=== PATIENT | male | born 1950 | race Caucasian/White ===

== ENCOUNTER 2017-10-25 06:57 | Inpatient (IN) | payer MEDICARE ==
[~2017-10-25] VITALS: Ht 182.9 cm; Wt 115.0 kg
[~2017-10-25 06:57] MED LIST: ASPI325 PO; ASPI81EC; Alph-E-Mixed400 UNIT; CALCIUM 1,0001 EACH PO; DIGO.25 PO; DILT120 PO; DRON400T; Daily Multiple1 EACH PO; Desyrel50 MG PO; FAMO20; FISH OIL 1,0001 EAC1 PO; FISH1000 PO; FLAX PO; FLEC100 PO; FLEC50; FLEC50 PO; HYDACE5 PO; HYOS.125 SL; L-Lysine500 M1 PO; LEVO-T125 MCG PO; LEVSOD150 PO; LEVSOD175 PO; LEVSOD75 PO; LORA10ER PO; LORATADINE10 MG PO; METOPROLOL PO; NAPR550 PO; PANT40 PO; PRAV20 PO; PROBIOTIC1 EAC3 PO; ROSU10TA; ROSU5 PO; SIMV40 PO; SV FLAXSEED OI1 EACH PO; TERB250; TESTOSTERONE; TESTOSTERONE IM; TESTTP; THYROID MED; Toprol Xl50 MG PO; UBID10 PO; VITAMIN C 500500 MG PO; VITAMIN D22000 UNIT PO; WARF2.5; WARF2.5 PO; WARF5 PO; [UNRECOGNIZED DRUG - CODE] PO; [UNRECOGNIZED DRUG - OTHER]; [UNRECOGNIZED DRUG - REMARK]; [UNRECOGNIZED DRUG - REMARK]
[2017-10-25] MEDS ORDERED: PRAV20 PO (07:35)
[2017-10-25 13:56] LABS: International Normalized Ratio 2.41; Prothrombin Time Results 25.8 Sec (9.7-11.5)
[2017-10-26 04:48] LABS: International Normalized Ratio 2.19; Prothrombin Time Results 23.3 Sec (9.7-11.5)
[2017-10-26] MEDS ORDERED: SOTO80 (16:52)
== END 2017-10-26 18:37 | disposition home or self-care (01) | DRG 287 ==
LOC: MHTC 06:57 → PCU 10:58 → MHTC 10-24 07:00
PROVIDERS: Internal Medicine Clinical Cardiac Electrophysiology
PROC: B2151ZZ Fluoroscopy of Left Heart using Low Osmolar Contrast (ICD-10-PCS; principal; 2017-10-25)
PROC: 5A2204Z Restoration of Cardiac Rhythm, Single (ICD-10-PCS; principal; 2017-10-25)
PROC: B2111ZZ Fluoroscopy of Multiple Coronary Arteries using Low Osmolar Contrast (ICD-10-PCS; principal; 2017-10-25)
PROC: 4A023N7 Measurement of Cardiac Sampling and Pressure, Left Heart, Percutaneous Approach (ICD-10-PCS; principal; 2017-10-25)
DX: I48.0 Paroxysmal atrial fibrillation (principal); E66.9 Obesity, unspecified; G47.33 Obstructive sleep apnea (adult) (pediatric); R94.39 Abnormal result of other cardiovascular function study; Z96.653 Presence of artificial knee joint, bilateral; Z79.01 Long term (current) use of anticoagulants; Z86.73 Personal history of transient ischemic attack (TIA), and cerebral infarction without residual deficits; Z68.34 Body mass index [BMI] 34.0-34.9, adult
CPT/HCPCS: 36415; 85610; 92960; 93005; 93010; 93454; 94762; 99152; 99153; C1769; C1894; J1644; J2250; J3010; J7030; Q9967

== ENCOUNTER → 2019-02-12 | Outpatient (CLI) | payer MEDICARE ==
[~2019-02-12] MED LIST changes: +SOTO80
[2019-02-12 08:08] LABS: BASOPHILS ABSOLUTE AUTO 0.06 K/mm3 (0.00-0.23); BASOPHILS PERCENT AUTO 1 % (0-2); EOSINOPHILS ABSOLUTE AUTO 0.25 K/mm3 (0.00-0.68); EOSINOPHILS PERCENT AUTO 4 % (0-6); Hemoglobin 18.8 g/dL (13.5-17.5); IMMATURE GRAN ABSOLUTE AUTO 0.02 K/mm3 (0.00-0.10); IMMATURE GRAN PERCENT AUTO 0 % (0-1); LYMPHOCYTES ABSOLUTE AUTO 1.07 K/mm3 (0.84-5.20); LYMPHOCYTES PERCENT AUTO 19 % (21-46); MONOCYTES ABSOLUTE AUTO 0.65 K/mm3 (0.16-1.47); MONOCYTES PERCENT AUTO 11 % (4-13); Mean Corpuscular HGB 32.6 pg (26.0-34.0); Mean Corpuscular HGB Conc 33.5 g/dL (31.5-36.5); Mean Corpuscular Volume 98 fL (80-100); Mean Platelet Volume 11.1 fL (9.1-12.4); NEUTROPHILS ABSOLUTE AUTO 3.74 K/mm3 (1.96-9.15); NEUTROPHILS PERCENT AUTO 65 % (41-73); Platelet Count 142 K/mm3 (150-400); RDW Coefficient Variation 14.8 % (11.7-14.2); RDW Standard Deviation 53.6 fL (35.1-46.3); Red Blood Cell Count 5.76 M/mm3 (4.30-5.90); White Blood Cell Count 5.79 K/mm3 (4.00-11.30)
[2019-02-12 08:10] LABS: Hematocrit 56.2 % (37.0-53.0)
[2019-02-12 08:18] LABS: Alanine Aminotransfer (ALT/SGP 29 U/L (12-78); Albumin, Blood 3.7 g/dL (3.4-5.0); Albumin/Globulin Ratio 1.1 (0.8-1.8); Alk Phos 88 U/L (40-126); Anion Gap 7 mmol/L (6-16); Aspartate Aminotrans (AST/SGOT 17 U/L (12-37); Blood Urea Nitrogen 20 mg/dL (8-24); Bun/Creatinine Ratio 17.7 (12.0-20.0); CO2, Blood 29 mmol/L (21-32); Chloride, Blood 102 mmol/L (98-108); Creatinine, Blood 1.13 mg/dL (0.60-1.20); Globulin, Blood 3.5 g/dL (2.2-4.0); Glomerular Filtration Rate >60 (60-); Glucose, Blood 93 mg/dL (70-99); Potassium, Blood 4.4 mmol/L (3.5-5.5); Sodium, Blood 138 mmol/L (136-145); Total Protein, Blood 7.2 g/dL (6.4-8.2)
== END | disposition home or self-care (01) ==
LOC: LAB SHORT 07:55 → LAB EV 07:55
PROVIDERS: Physician Assistant Medical
DX: R07.89 Other chest pain (principal)
CPT/HCPCS: 80053; 85025

== ENCOUNTER 2019-08-05 08:52 | Day surgery (SDC) | payer MEDICARE | END 2019-08-05 22:43 | disposition home or self-care (01) | LOC: CT 08:52 | DX: R91.8 Other nonspecific abnormal finding of lung field (principal); J45.909 Unspecified asthma, uncomplicated; I10 Essential (primary) hypertension; I48.0 Paroxysmal atrial fibrillation; E78.5 Hyperlipidemia, unspecified; E03.9 Hypothyroidism, unspecified; M19.90 Unspecified osteoarthritis, unspecified site; G89.29 Other chronic pain; M54.5 Low back pain; K21.9 Gastro-esophageal reflux disease without esophagitis; G47.33 Obstructive sleep apnea (adult) (pediatric); Z99.89 Dependence on other enabling machines and devices; Z79.01 Long term (current) use of anticoagulants; Z79.890 Hormone replacement therapy; Z79.899 Other long term (current) drug therapy; Z88.1 Allergy status to other antibiotic agents; Z88.8 Allergy status to other drugs, medicaments and biological substances; Z91.040 Latex allergy status; Z91.018 Allergy to other foods; Z86.73 Personal history of transient ischemic attack (TIA), and cerebral infarction without residual deficits | CPT/HCPCS: 76380 ==

== ENCOUNTER 2020-05-26 11:26 | Day surgery (SDC) | payer MEDICARE ==
[~2020-05-26] VITALS: Ht 180.3 cm; Wt 126.8 kg
[~2020-05-26 11:26] MED LIST changes: +ELIQUIS5 MG PO; +MAGNESIUM OXID500 MG PO; +Pravachol40 MG PO; +SILDENAFIL CIT100 MG PO
== END 2020-05-26 14:18 | disposition home or self-care (01) ==
LOC: ORSCSDS 11:26
PROVIDERS: Internal Medicine Gastroenterology
PROC: 0DBM8ZX Excision of Descending Colon, Via Natural or Artificial Opening Endoscopic, Diagnostic (ICD-10-PCS; principal; 2020-05-26 13:00)
DX: Z12.11 Encounter for screening for malignant neoplasm of colon (principal); D12.4 Benign neoplasm of descending colon; K57.30 Diverticulosis of large intestine without perforation or abscess without bleeding; K64.8 Other hemorrhoids; G47.33 Obstructive sleep apnea (adult) (pediatric); I48.91 Unspecified atrial fibrillation; Z79.01 Long term (current) use of anticoagulants; E66.01 Morbid (severe) obesity due to excess calories; Z68.41 Body mass index [BMI] 40.0-44.9, adult; Z79.899 Other long term (current) drug therapy
CPT/HCPCS: 88305; J2704; J7120

== ENCOUNTER → 2020-09-28 | Outpatient (CLI) | payer MEDICARE | END | disposition home or self-care (01) | LOC: LAB SHORT 11:30 → PLD 11:30 | DX: D48.5 Neoplasm of uncertain behavior of skin (principal) | CPT/HCPCS: 88304 ==

== ENCOUNTER → 2020-09-28 | Outpatient (CLI) | payer MEDICARE ==
[2020-09-28 12:42] LABS: BASOPHILS ABSOLUTE AUTO 0.06 K/mm3 (0.00-0.23); BASOPHILS PERCENT AUTO 1 % (0-2); EOSINOPHILS ABSOLUTE AUTO 0.17 K/mm3 (0.00-0.68); EOSINOPHILS PERCENT AUTO 3 % (0-6); Hemoglobin 19.3 g/dL (13.5-17.5); IMMATURE GRAN ABSOLUTE AUTO 0.02 K/mm3 (0.00-0.10); IMMATURE GRAN PERCENT AUTO 0 % (0-1); LYMPHOCYTES PERCENT AUTO 18 % (21-46); MONOCYTES ABSOLUTE AUTO 0.58 K/mm3 (0.16-1.47); MONOCYTES PERCENT AUTO 9 % (4-13); Mean Corpuscular HGB 31.3 pg (26.0-34.0); Mean Corpuscular HGB Conc 32.8 g/dL (31.5-36.5); Mean Corpuscular Volume 96 fL (80-100); Mean Platelet Volume 11.1 fL (9.1-12.4); NEUTROPHILS ABSOLUTE AUTO 4.56 K/mm3 (1.96-9.15); NEUTROPHILS PERCENT AUTO 69 % (41-73); Platelet Count 165 K/mm3 (150-400); RDW Coefficient Variation 15.6 % (11.7-14.2); RDW Standard Deviation 53.5 fL (35.1-46.3); Red Blood Cell Count 6.17 M/mm3 (4.30-5.90); White Blood Cell Count 6.59 K/mm3 (4.00-11.30)
[2020-09-28 12:49] LABS: Hematocrit 58.9 % (37.0-53.0)
[2020-09-28 12:51] LABS: Alanine Aminotransfer (ALT/SGP 27 U/L (12-78); Albumin, Blood 3.5 g/dL (3.4-5.0); Albumin/Globulin Ratio 0.9 (0.8-1.8); Alk Phos 94 U/L (40-126); Anion Gap 2 mmol/L (6-16); Aspartate Aminotrans (AST/SGOT 16 U/L (12-37); Bilirubin, Total 1.2 mg/dL (0.1-1.0); Blood Urea Nitrogen 13 mg/dL (8-24); Bun/Creatinine Ratio 13.5 (12.0-20.0); CO2, Blood 33 mmol/L (21-32); Calcium, Blood 9.2 mg/dL (8.5-10.1); Chloride, Blood 101 mmol/L (98-108); Creatinine, Blood 0.96 mg/dL (0.60-1.20); Globulin, Blood 3.8 g/dL (2.2-4.0); Glomerular Filtration Rate >60 (60-); Glucose, Blood 85 mg/dL (70-99); Potassium, Blood 4.4 mmol/L (3.5-5.5); Sodium, Blood 136 mmol/L (136-145); Total Protein, Blood 7.3 g/dL (6.4-8.2)
[2020-10-01 10:10] LABS: B. HENSELAE IGG Negative titer (Neg:<1:320); B. HENSELAE IGM Negative titer (Neg:<1:100); B. QUINTANA IGG Negative titer (Neg:<1:320); B. QUINTANA IGM Negative titer (Neg:<1:100)
== END | disposition home or self-care (01) ==
LOC: LAB EV 12:36 → LAB SHORT 12:36
PROVIDERS: Physician Assistant
DX: M25.512 Pain in left shoulder (principal); R53.83 Other fatigue; W55.03XA Scratched by cat, initial encounter
CPT/HCPCS: 80053; 85025; 85651; 86611; 86695; 86696

== ENCOUNTER 2022-02-07 09:46 | Emergency (ER) | payer MEDICARE ==
[~2022-02-07] VITALS: Ht 180.3 cm; Wt 122.0 kg
[~2022-02-07 09:46] MED LIST changes: +B-12500 MCG PO; +COENZYME Q10100 MG PO; +FISH OIL; +GABA300 PO; +MAGCIT300 PO; +MELATONIN5 M1 PO; +PANT20 PO; +PROBIOTIC1 EA13 PO; +TESTOSTERONE75 GM; +VITAMIN D31000 UNI1 PO
[2022-02-07 10:19] LABS: BASOPHILS ABSOLUTE AUTO 0.04 K/mm3 (0.00-0.23); BASOPHILS PERCENT AUTO 1 % (0-2); EOSINOPHILS ABSOLUTE AUTO 0.28 K/mm3 (0.00-0.68); EOSINOPHILS PERCENT AUTO 5 % (0-6); Hematocrit 51.9 % (37.0-53.0); Hemoglobin 17.4 g/dL (13.5-17.5); IMMATURE GRAN ABSOLUTE AUTO 0.02 K/mm3 (0.00-0.10); IMMATURE GRAN PERCENT AUTO 0 % (0-1); LYMPHOCYTES ABSOLUTE AUTO 1.04 K/mm3 (0.84-5.20); LYMPHOCYTES PERCENT AUTO 17 % (21-46); MONOCYTES ABSOLUTE AUTO 0.52 K/mm3 (0.16-1.47); MONOCYTES PERCENT AUTO 9 % (4-13); Mean Corpuscular HGB 31.3 pg (26.0-34.0); Mean Corpuscular HGB Conc 33.5 g/dL (31.5-36.5); Mean Corpuscular Volume 93 fL (80-100); Mean Platelet Volume 11.7 fL (9.1-12.4); NEUTROPHILS ABSOLUTE AUTO 4.13 K/mm3 (1.96-9.15); NEUTROPHILS PERCENT AUTO 69 % (41-73); Platelet Count 165 K/mm3 (150-400); RDW Coefficient Variation 14.5 % (11.7-14.2); RDW Standard Deviation 50.3 fL (35.1-46.3); Red Blood Cell Count 5.56 M/mm3 (4.30-5.90); White Blood Cell Count 6.03 K/mm3 (4.00-11.30)
[2022-02-07 10:29] LABS: Albumin, Blood 3.7 g/dL (3.4-5.0); Albumin/Globulin Ratio 0.9 (0.8-1.8); Bilirubin, Total 1.1 mg/dL (0.1-1.0); Bun/Creatinine Ratio 14.3 (12.0-20.0); Calcium, Blood 9.5 mg/dL (8.5-10.1); Creatinine, Blood 0.84 mg/dL (0.60-1.20); Globulin, Blood 4.2 g/dL (2.2-4.0); Magnesium, Blood 2.3 mg/dL (1.6-2.4); Potassium, Blood 4.1 mmol/L (3.5-5.5); Total Protein, Blood 7.9 g/dL (6.4-8.2)
== END 2022-02-07 15:16 | disposition home or self-care (01) ==
LOC: ER 09:46
PROVIDERS: Student in an Organized Health Care Education/Training Program
DX: I48.91 Unspecified atrial fibrillation (principal); Z86.73 Personal history of transient ischemic attack (TIA), and cerebral infarction without residual deficits; Z79.01 Long term (current) use of anticoagulants; Z79.899 Other long term (current) drug therapy; Z88.8 Allergy status to other drugs, medicaments and biological substances; Z88.1 Allergy status to other antibiotic agents; Z91.040 Latex allergy status
CPT/HCPCS: 36415; 71045; 80053; 83735; 84484; 85025; 92960; 93005; 93010; 99152; 99285-25; J2704; J7030

== ENCOUNTER 2023-05-03 08:00 | Day surgery (SDC) | payer MEDICARE | END 2023-05-03 23:59 | disposition home or self-care (01) | LOC: WOUND 08:00 | DX: I87.312 Chronic venous hypertension (idiopathic) with ulcer of left lower extremity (principal); L97.322 Non-pressure chronic ulcer of left ankle with fat layer exposed; S90.829D Blister (nonthermal), unspecified foot, subsequent encounter; I10 Essential (primary) hypertension | CPT/HCPCS: A9270; G0463 ==

== ENCOUNTER 2023-05-10 01:57 | Day surgery (SDC) | payer MEDICARE | END 2023-05-10 23:34 | disposition home or self-care (01) | LOC: WOUND 01:57 | DX: I87.312 Chronic venous hypertension (idiopathic) with ulcer of left lower extremity (principal); L97.322 Non-pressure chronic ulcer of left ankle with fat layer exposed; S90.829D Blister (nonthermal), unspecified foot, subsequent encounter; X58.XXXD Exposure to other specified factors, subsequent encounter; I10 Essential (primary) hypertension; I73.9 Peripheral vascular disease, unspecified | CPT/HCPCS: A9270 ==

== ENCOUNTER 2023-05-17 03:31 | Day surgery (SDC) | payer MEDICARE | END 2023-05-17 22:43 | disposition home or self-care (01) | LOC: WOUND 03:31 | DX: I87.312 Chronic venous hypertension (idiopathic) with ulcer of left lower extremity (principal); S90.829D Blister (nonthermal), unspecified foot, subsequent encounter; I10 Essential (primary) hypertension; I73.9 Peripheral vascular disease, unspecified; L97.322 Non-pressure chronic ulcer of left ankle with fat layer exposed | CPT/HCPCS: A9270 ==

== ENCOUNTER 2023-06-01 05:10 | Day surgery (SDC) | payer MEDICARE | END 2023-06-01 22:51 | disposition home or self-care (01) | LOC: WOUND 05:10 | DX: I87.312 Chronic venous hypertension (idiopathic) with ulcer of left lower extremity (principal); L97.322 Non-pressure chronic ulcer of left ankle with fat layer exposed; I10 Essential (primary) hypertension; I73.9 Peripheral vascular disease, unspecified; I87.2 Venous insufficiency (chronic) (peripheral) | CPT/HCPCS: A9270; G0463 ==

== ENCOUNTER 2023-06-07 05:22 | Day surgery (SDC) | payer MEDICARE | END 2023-06-07 22:50 | disposition home or self-care (01) | LOC: WOUND 05:22 | DX: I87.312 Chronic venous hypertension (idiopathic) with ulcer of left lower extremity (principal); L97.322 Non-pressure chronic ulcer of left ankle with fat layer exposed; S90.829D Blister (nonthermal), unspecified foot, subsequent encounter; X58.XXXD Exposure to other specified factors, subsequent encounter; I10 Essential (primary) hypertension; I73.9 Peripheral vascular disease, unspecified | CPT/HCPCS: A9270; G0463 ==

== ENCOUNTER 2023-06-28 02:38 | Day surgery (SDC) | payer MEDICARE | END 2023-06-28 22:52 | disposition home or self-care (01) | LOC: WOUND 02:38 | DX: I87.312 Chronic venous hypertension (idiopathic) with ulcer of left lower extremity (principal); L97.322 Non-pressure chronic ulcer of left ankle with fat layer exposed; S90.829D Blister (nonthermal), unspecified foot, subsequent encounter; X58.XXXD Exposure to other specified factors, subsequent encounter; I10 Essential (primary) hypertension | CPT/HCPCS: A9270; G0463 ==

== ENCOUNTER 2023-07-05 01:26 | Day surgery (SDC) | payer MEDICARE | END 2023-07-05 22:57 | disposition home or self-care (01) | LOC: WOUND 01:26 | DX: I87.312 Chronic venous hypertension (idiopathic) with ulcer of left lower extremity (principal); L97.322 Non-pressure chronic ulcer of left ankle with fat layer exposed; S90.829D Blister (nonthermal), unspecified foot, subsequent encounter; X58.XXXD Exposure to other specified factors, subsequent encounter; I10 Essential (primary) hypertension; I73.9 Peripheral vascular disease, unspecified | CPT/HCPCS: A9270; G0463 ==

== ENCOUNTER 2023-07-19 04:56 | Day surgery (SDC) | payer MEDICARE | END 2023-07-19 23:04 | disposition home or self-care (01) | LOC: WOUND 04:56 | DX: I87.312 Chronic venous hypertension (idiopathic) with ulcer of left lower extremity (principal); L97.322 Non-pressure chronic ulcer of left ankle with fat layer exposed; S80.829D Blister (nonthermal), unspecified lower leg, subsequent encounter; X58.XXXD Exposure to other specified factors, subsequent encounter; I10 Essential (primary) hypertension; I73.9 Peripheral vascular disease, unspecified | CPT/HCPCS: A9270 ==

== ENCOUNTER 2023-08-01 22:57 | Emergency (ER) | payer MEDICARE ==
[~2023-08-01] VITALS: Ht 180.3 cm; Wt 127.9 kg
[2023-08-01 23:02] VITALS: BP 167/92
== END 2023-08-01 23:50 | disposition home or self-care (01) ==
LOC: ER 22:57
DX: R03.0 Elevated blood-pressure reading, without diagnosis of hypertension (principal); I48.91 Unspecified atrial fibrillation; Z86.73 Personal history of transient ischemic attack (TIA), and cerebral infarction without residual deficits; Z79.01 Long term (current) use of anticoagulants; Z79.899 Other long term (current) drug therapy; Z88.1 Allergy status to other antibiotic agents; Z88.8 Allergy status to other drugs, medicaments and biological substances; Z91.018 Allergy to other foods; Z91.040 Latex allergy status
CPT/HCPCS: 99283

== ENCOUNTER 2023-08-02 05:03 | Day surgery (SDC) | payer MEDICARE | END 2023-08-02 22:53 | disposition home or self-care (01) | LOC: WOUND 05:03 | DX: I87.312 Chronic venous hypertension (idiopathic) with ulcer of left lower extremity (principal); L97.322 Non-pressure chronic ulcer of left ankle with fat layer exposed; S90.829D Blister (nonthermal), unspecified foot, subsequent encounter; X58.XXXD Exposure to other specified factors, subsequent encounter; I10 Essential (primary) hypertension; I73.9 Peripheral vascular disease, unspecified | CPT/HCPCS: A9270; G0463 ==

== ENCOUNTER 2023-08-16 02:11 | Day surgery (SDC) | payer MEDICARE | END 2023-08-16 22:59 | disposition home or self-care (01) | LOC: WOUND 02:11 | PROC: 0JBR0ZZ Excision of Left Foot Subcutaneous Tissue and Fascia, Open Approach (ICD-10-PCS; principal; 2023-08-16) | DX: I70.25 Atherosclerosis of native arteries of other extremities with ulceration (principal); L98.492 Non-pressure chronic ulcer of skin of other sites with fat layer exposed; I10 Essential (primary) hypertension | CPT/HCPCS: A9270 ==

== ENCOUNTER 2023-08-23 04:58 | Day surgery (SDC) | payer MEDICARE | END 2023-08-23 23:02 | disposition home or self-care (01) | LOC: WOUND 04:58 | DX: I87.312 Chronic venous hypertension (idiopathic) with ulcer of left lower extremity (principal); L97.322 Non-pressure chronic ulcer of left ankle with fat layer exposed; S90.829D Blister (nonthermal), unspecified foot, subsequent encounter; X58.XXXD Exposure to other specified factors, subsequent encounter; I10 Essential (primary) hypertension; I73.9 Peripheral vascular disease, unspecified | CPT/HCPCS: G0463 ==

== ENCOUNTER 2023-08-27 03:25 | Day surgery (SDC) | payer MEDICARE | END 2023-08-27 23:39 | disposition home or self-care (01) | LOC: WOUND 03:25 | DX: I87.312 Chronic venous hypertension (idiopathic) with ulcer of left lower extremity (principal); I10 Essential (primary) hypertension; I73.9 Peripheral vascular disease, unspecified; L97.309 Non-pressure chronic ulcer of unspecified ankle with unspecified severity; L97.322 Non-pressure chronic ulcer of left ankle with fat layer exposed; S90.829D Blister (nonthermal), unspecified foot, subsequent encounter; X58.XXXD Exposure to other specified factors, subsequent encounter ==

== ENCOUNTER 2023-08-29 02:57 | Day surgery (SDC) | payer MEDICARE | END 2023-08-29 23:20 | disposition home or self-care (01) | LOC: WOUND 02:57 | DX: I87.312 Chronic venous hypertension (idiopathic) with ulcer of left lower extremity (principal); S90.829D Blister (nonthermal), unspecified foot, subsequent encounter; I10 Essential (primary) hypertension; I73.9 Peripheral vascular disease, unspecified; L97.309 Non-pressure chronic ulcer of unspecified ankle with unspecified severity; L97.322 Non-pressure chronic ulcer of left ankle with fat layer exposed ==

== ENCOUNTER 2023-09-06 02:00 | Day surgery (SDC) | payer MEDICARE | END 2023-09-06 22:52 | disposition home or self-care (01) | LOC: WOUND 02:00 | DX: I87.312 Chronic venous hypertension (idiopathic) with ulcer of left lower extremity (principal); L97.322 Non-pressure chronic ulcer of left ankle with fat layer exposed; S90.829D Blister (nonthermal), unspecified foot, subsequent encounter; X58.XXXD Exposure to other specified factors, subsequent encounter; I10 Essential (primary) hypertension; I73.9 Peripheral vascular disease, unspecified | CPT/HCPCS: 87071; 87075; 87076; 87077; 87186; 87205 ==

== ENCOUNTER 2023-09-13 01:34 | Day surgery (SDC) | payer MEDICARE ==
[2023-09-13] MEDS ORDERED: Lidocaine HCl 4% Cream 5 GM ONE (14:31)
== END 2023-09-13 22:51 | disposition home or self-care (01) ==
LOC: WOUND 01:34
PROC: 5A02115 Assistance with Cardiac Output using Pulsatile Compression, Intermittent (ICD-10-PCS; principal; 2023-09-13)
DX: I70.25 Atherosclerosis of native arteries of other extremities with ulceration (principal); L98.492 Non-pressure chronic ulcer of skin of other sites with fat layer exposed; I87.312 Chronic venous hypertension (idiopathic) with ulcer of left lower extremity; S90.829D Blister (nonthermal), unspecified foot, subsequent encounter; I10 Essential (primary) hypertension; X58.XXXD Exposure to other specified factors, subsequent encounter
CPT/HCPCS: A9270

== ENCOUNTER 2023-09-20 03:25 | Day surgery (SDC) | payer MEDICARE | END 2023-09-20 22:46 | disposition home or self-care (01) | LOC: WOUND 03:25 | DX: I87.312 Chronic venous hypertension (idiopathic) with ulcer of left lower extremity (principal); L97.322 Non-pressure chronic ulcer of left ankle with fat layer exposed; S90.829D Blister (nonthermal), unspecified foot, subsequent encounter; X58.XXXD Exposure to other specified factors, subsequent encounter; I10 Essential (primary) hypertension; I73.9 Peripheral vascular disease, unspecified ==

== ENCOUNTER 2023-11-08 02:35 | Day surgery (SDC) | payer MEDICARE | END 2023-11-08 23:09 | disposition home or self-care (01) | LOC: WOUND 02:35 | DX: I70.25 Atherosclerosis of native arteries of other extremities with ulceration (principal); L98.492 Non-pressure chronic ulcer of skin of other sites with fat layer exposed; S90.829D Blister (nonthermal), unspecified foot, subsequent encounter; I10 Essential (primary) hypertension; I87.312 Chronic venous hypertension (idiopathic) with ulcer of left lower extremity; L97.309 Non-pressure chronic ulcer of unspecified ankle with unspecified severity; L97.322 Non-pressure chronic ulcer of left ankle with fat layer exposed | CPT/HCPCS: A6196; G0463 ==

== ENCOUNTER 2023-11-29 02:48 | Day surgery (SDC) | payer MEDICARE | END 2023-11-29 22:48 | disposition home or self-care (01) | LOC: WOUND 02:48 | DX: I87.312 Chronic venous hypertension (idiopathic) with ulcer of left lower extremity (principal); L97.322 Non-pressure chronic ulcer of left ankle with fat layer exposed; S90.829D Blister (nonthermal), unspecified foot, subsequent encounter; X58.XXXD Exposure to other specified factors, subsequent encounter; I10 Essential (primary) hypertension; I73.9 Peripheral vascular disease, unspecified | CPT/HCPCS: A6213; G0463 ==

== ENCOUNTER 2023-12-06 03:46 | Day surgery (SDC) | payer MEDICARE | END 2023-12-06 23:11 | disposition home or self-care (01) | LOC: WOUND 03:46 | DX: I70.243 Atherosclerosis of native arteries of left leg with ulceration of ankle (principal); L97.322 Non-pressure chronic ulcer of left ankle with fat layer exposed; I87.312 Chronic venous hypertension (idiopathic) with ulcer of left lower extremity; S90.829D Blister (nonthermal), unspecified foot, subsequent encounter; I10 Essential (primary) hypertension | CPT/HCPCS: G0463 ==

== ENCOUNTER 2024-01-28 02:27 | Day surgery (SDC) | payer MEDICARE ==
[2024-01-28] MEDS ORDERED: Lidocaine HCl 4% Cream 5 GM ONE (08:10)
== END 2024-01-28 23:28 | disposition home or self-care (01) ==
LOC: WOUND 02:27
DX: I87.312 Chronic venous hypertension (idiopathic) with ulcer of left lower extremity (principal); L97.322 Non-pressure chronic ulcer of left ankle with fat layer exposed; I10 Essential (primary) hypertension; I73.9 Peripheral vascular disease, unspecified; S90.829D Blister (nonthermal), unspecified foot, subsequent encounter
CPT/HCPCS: A9270; Q4133

== ENCOUNTER 2024-02-06 10:33 | Day surgery (SDC) | payer MEDICARE ==
[2024-02-06] MEDS ORDERED: Lidocaine HCl 4% Cream 5 GM ONE (10:41)
== END 2024-02-06 22:57 | disposition home or self-care (01) ==
LOC: WOUND 10:33
DX: I87.312 Chronic venous hypertension (idiopathic) with ulcer of left lower extremity (principal); S90.829D Blister (nonthermal), unspecified foot, subsequent encounter; I73.9 Peripheral vascular disease, unspecified; L97.322 Non-pressure chronic ulcer of left ankle with fat layer exposed; I10 Essential (primary) hypertension; X58.XXXD Exposure to other specified factors, subsequent encounter
CPT/HCPCS: A6213; A9270; Q4133

== ENCOUNTER 2024-02-14 02:37 | Day surgery (SDC) | payer MEDICARE ==
[2024-02-14] MEDS ORDERED: Lidocaine HCl 4% Cream 5 GM ONE (14:35)
== END 2024-02-15 22:51 | disposition home or self-care (01) ==
LOC: WOUND 02:37
DX: I87.312 Chronic venous hypertension (idiopathic) with ulcer of left lower extremity (principal); S90.829D Blister (nonthermal), unspecified foot, subsequent encounter; I10 Essential (primary) hypertension; I73.9 Peripheral vascular disease, unspecified; L97.322 Non-pressure chronic ulcer of left ankle with fat layer exposed; X58.XXXD Exposure to other specified factors, subsequent encounter
CPT/HCPCS: A6213; A9270; Q4133

== ENCOUNTER 2024-02-26 01:59 | Day surgery (SDC) | payer MEDICARE ==
[2024-02-26] MEDS ORDERED: Lidocaine HCl 4% Cream 5 GM ONE (14:33)
== END 2024-02-26 23:17 | disposition home or self-care (01) ==
LOC: WOUND 01:59
DX: I87.312 Chronic venous hypertension (idiopathic) with ulcer of left lower extremity (principal); L97.322 Non-pressure chronic ulcer of left ankle with fat layer exposed; I10 Essential (primary) hypertension
CPT/HCPCS: A6213; A9270; Q4133

== ENCOUNTER 2024-03-18 04:04 | Day surgery (SDC) | payer MEDICARE ==
[2024-03-18] MEDS ORDERED: Lidocaine HCl 4% Cream 5 GM ONE (14:23)
== END 2024-03-18 23:22 | disposition home or self-care (01) ==
LOC: WOUND 04:04
DX: I87.312 Chronic venous hypertension (idiopathic) with ulcer of left lower extremity (principal); L97.322 Non-pressure chronic ulcer of left ankle with fat layer exposed; S90.829D Blister (nonthermal), unspecified foot, subsequent encounter; I10 Essential (primary) hypertension; I73.9 Peripheral vascular disease, unspecified; X58.XXXD Exposure to other specified factors, subsequent encounter
CPT/HCPCS: A6213; A9270

== ENCOUNTER 2024-04-22 03:21 | Day surgery (SDC) | payer MEDICARE ==
[2024-04-22] MEDS ORDERED: Lidocaine HCl 4% Cream 5 GM ONE (14:43)
== END 2024-04-22 23:00 | disposition home or self-care (01) ==
LOC: WOUND 03:21
DX: I87.312 Chronic venous hypertension (idiopathic) with ulcer of left lower extremity (principal); L97.322 Non-pressure chronic ulcer of left ankle with fat layer exposed; S90.829D Blister (nonthermal), unspecified foot, subsequent encounter; I10 Essential (primary) hypertension; I73.9 Peripheral vascular disease, unspecified; X58.XXXD Exposure to other specified factors, subsequent encounter
CPT/HCPCS: A6196; A6213; A9270

== ENCOUNTER 2024-04-29 02:10 | Day surgery (SDC) | payer MEDICARE ==
[2024-04-29] MEDS ORDERED: Lidocaine HCl 4% Cream 5 GM ONE (14:27)
== END 2024-04-29 23:08 | disposition home or self-care (01) ==
LOC: WOUND 02:10
DX: I87.312 Chronic venous hypertension (idiopathic) with ulcer of left lower extremity (principal); L97.322 Non-pressure chronic ulcer of left ankle with fat layer exposed; S90.829A Blister (nonthermal), unspecified foot, initial encounter; X58.XXXA Exposure to other specified factors, initial encounter; I10 Essential (primary) hypertension; I73.9 Peripheral vascular disease, unspecified
CPT/HCPCS: A6196; A6213; A9270

== ENCOUNTER 2024-05-06 03:29 | Day surgery (SDC) | payer MEDICARE | END 2024-05-06 23:00 | LOC: WOUND 03:29 | DX: I87.312 Chronic venous hypertension (idiopathic) with ulcer of left lower extremity (principal); L97.322 Non-pressure chronic ulcer of left ankle with fat layer exposed; S90.829D Blister (nonthermal), unspecified foot, subsequent encounter; I10 Essential (primary) hypertension; I73.9 Peripheral vascular disease, unspecified; X58.XXXD Exposure to other specified factors, subsequent encounter | CPT/HCPCS: A6213; Q4133 ==

== ENCOUNTER 2024-05-13 02:32 | Day surgery (SDC) | payer MEDICARE ==
[2024-05-13] MEDS ORDERED: Lidocaine HCl 4% Cream 5 GM ONE (14:16)
== END 2024-05-13 23:00 | disposition home or self-care (01) ==
LOC: WOUND 02:32
DX: I87.312 Chronic venous hypertension (idiopathic) with ulcer of left lower extremity (principal); L97.322 Non-pressure chronic ulcer of left ankle with fat layer exposed; S90.829D Blister (nonthermal), unspecified foot, subsequent encounter; I10 Essential (primary) hypertension; I73.9 Peripheral vascular disease, unspecified; L97.309 Non-pressure chronic ulcer of unspecified ankle with unspecified severity
CPT/HCPCS: A6213; A9270; G0463

== ENCOUNTER 2024-05-20 04:24 | Day surgery (SDC) | payer MEDICARE ==
[2024-05-20] MEDS ORDERED: Lidocaine HCl 4% Cream 5 GM ONE (14:56)
== END 2024-05-20 23:15 | disposition home or self-care (01) ==
LOC: WOUND 04:24
DX: I87.312 Chronic venous hypertension (idiopathic) with ulcer of left lower extremity (principal); L97.322 Non-pressure chronic ulcer of left ankle with fat layer exposed; I10 Essential (primary) hypertension; I73.9 Peripheral vascular disease, unspecified
CPT/HCPCS: A6213; A9270; G0463

== ENCOUNTER 2024-05-27 01:37 | Day surgery (SDC) | payer MEDICARE ==
[2024-05-27] MEDS ORDERED: Lidocaine HCl 4% Cream 5 GM ONE (14:34)
== END 2024-05-27 23:00 | disposition home or self-care (01) ==
LOC: WOUND 01:37
DX: I87.312 Chronic venous hypertension (idiopathic) with ulcer of left lower extremity (principal); L97.322 Non-pressure chronic ulcer of left ankle with fat layer exposed; I10 Essential (primary) hypertension; I73.9 Peripheral vascular disease, unspecified
CPT/HCPCS: A9270

== ENCOUNTER 2024-06-03 02:27 | Day surgery (SDC) | payer MEDICARE ==
[2024-06-03] MEDS ORDERED: Lidocaine HCl 4% Cream 5 GM ONE (14:22)
== END 2024-06-03 23:00 | disposition home or self-care (01) ==
LOC: WOUND 02:27
DX: I87.312 Chronic venous hypertension (idiopathic) with ulcer of left lower extremity (principal); L97.322 Non-pressure chronic ulcer of left ankle with fat layer exposed; I10 Essential (primary) hypertension; I73.9 Peripheral vascular disease, unspecified
CPT/HCPCS: A9270

== ENCOUNTER 2024-06-10 02:24 | Day surgery (SDC) | payer MEDICARE ==
[2024-06-10] MEDS ORDERED: Lidocaine HCl 4% Cream 5 GM ONE (14:43)
== END 2024-06-10 23:00 | disposition home or self-care (01) ==
LOC: WOUND 02:24
DX: I87.312 Chronic venous hypertension (idiopathic) with ulcer of left lower extremity (principal); L97.322 Non-pressure chronic ulcer of left ankle with fat layer exposed; L70.8 Other acne; I73.9 Peripheral vascular disease, unspecified; I10 Essential (primary) hypertension
CPT/HCPCS: A9270

== ENCOUNTER 2024-06-24 01:06 | Day surgery (SDC) | payer MEDICARE | END 2024-06-24 23:24 | disposition home or self-care (01) | LOC: WOUND 01:06 | DX: I87.312 Chronic venous hypertension (idiopathic) with ulcer of left lower extremity (principal); L97.322 Non-pressure chronic ulcer of left ankle with fat layer exposed; I73.9 Peripheral vascular disease, unspecified; I10 Essential (primary) hypertension; S90.829D Blister (nonthermal), unspecified foot, subsequent encounter; X58.XXXD Exposure to other specified factors, subsequent encounter ==

== ENCOUNTER 2024-07-01 05:33 | Day surgery (SDC) | payer MEDICARE | END 2024-07-01 23:54 | disposition home or self-care (01) | LOC: WOUND 05:33 | DX: I87.312 Chronic venous hypertension (idiopathic) with ulcer of left lower extremity (principal); L97.322 Non-pressure chronic ulcer of left ankle with fat layer exposed; I10 Essential (primary) hypertension; I73.9 Peripheral vascular disease, unspecified; I87.2 Venous insufficiency (chronic) (peripheral) ==

== ENCOUNTER 2024-07-08 03:01 | Day surgery (SDC) | payer MEDICARE ==
[2024-07-08] MEDS ORDERED: Lidocaine HCl 4% Cream 5 GM ONE (14:40)
== END 2024-07-08 23:00 | disposition home or self-care (01) ==
LOC: WOUND 03:01
DX: I87.312 Chronic venous hypertension (idiopathic) with ulcer of left lower extremity (principal); L97.322 Non-pressure chronic ulcer of left ankle with fat layer exposed; I73.9 Peripheral vascular disease, unspecified; I10 Essential (primary) hypertension
CPT/HCPCS: A9270

== ENCOUNTER 2024-07-15 04:44 | Day surgery (SDC) | payer MEDICARE | END 2024-07-15 23:00 | disposition home or self-care (01) | LOC: WOUND 04:44 | DX: I87.312 Chronic venous hypertension (idiopathic) with ulcer of left lower extremity (principal); L97.322 Non-pressure chronic ulcer of left ankle with fat layer exposed; I87.2 Venous insufficiency (chronic) (peripheral); I73.9 Peripheral vascular disease, unspecified; I10 Essential (primary) hypertension ==

== ENCOUNTER 2024-07-21 04:49 | Day surgery (SDC) | payer MEDICARE | END 2024-07-23 23:00 | disposition home or self-care (01) | LOC: WOUND 04:49 | DX: I87.312 Chronic venous hypertension (idiopathic) with ulcer of left lower extremity (principal); L97.329 Non-pressure chronic ulcer of left ankle with unspecified severity; I73.9 Peripheral vascular disease, unspecified; I10 Essential (primary) hypertension ==

== ENCOUNTER 2024-07-29 03:28 | Day surgery (SDC) | payer MEDICARE ==
[2024-07-29] MEDS ORDERED: Lidocaine HCl 4% Cream 5 GM ONE (16:01)
== END 2024-07-29 23:00 | disposition home or self-care (01) ==
LOC: WOUND 03:28
DX: I87.312 Chronic venous hypertension (idiopathic) with ulcer of left lower extremity (principal); L97.322 Non-pressure chronic ulcer of left ankle with fat layer exposed; S90.829D Blister (nonthermal), unspecified foot, subsequent encounter; I10 Essential (primary) hypertension; I73.9 Peripheral vascular disease, unspecified
CPT/HCPCS: A9270

== ENCOUNTER 2024-08-05 06:12 | Day surgery (SDC) | payer MEDICARE | END 2024-08-05 23:00 | disposition home or self-care (01) | LOC: WOUND 06:12 | DX: I87.312 Chronic venous hypertension (idiopathic) with ulcer of left lower extremity (principal); L97.322 Non-pressure chronic ulcer of left ankle with fat layer exposed; I87.2 Venous insufficiency (chronic) (peripheral); I73.9 Peripheral vascular disease, unspecified; I10 Essential (primary) hypertension ==

== ENCOUNTER 2024-08-12 08:11 | Day surgery (SDC) | payer MEDICARE | END 2024-08-12 23:00 | disposition home or self-care (01) | LOC: WOUND 08:11 | DX: I87.312 Chronic venous hypertension (idiopathic) with ulcer of left lower extremity (principal); L97.322 Non-pressure chronic ulcer of left ankle with fat layer exposed; I10 Essential (primary) hypertension; I73.9 Peripheral vascular disease, unspecified; I87.2 Venous insufficiency (chronic) (peripheral) ==

== ENCOUNTER 2024-08-21 05:20 | Day surgery (SDC) | payer MEDICARE | END 2024-08-21 23:00 | disposition home or self-care (01) | LOC: WOUND 05:20 | DX: L97.322 Non-pressure chronic ulcer of left ankle with fat layer exposed (principal) ==

== ENCOUNTER 2024-08-26 | Day surgery (SDC) | payer MEDICARE | END 2024-08-26 23:00 | disposition home or self-care (01) | LOC: WOUND | DX: L97.329 Non-pressure chronic ulcer of left ankle with unspecified severity (principal); I87.2 Venous insufficiency (chronic) (peripheral); I10 Essential (primary) hypertension; I73.9 Peripheral vascular disease, unspecified | CPT/HCPCS: G0463 ==